=== PATIENT | male | born 1980 | race Caucasian/White ===

== ENCOUNTER 2016-10-05 12:50 | Emergency (ER) | payer SELFPAY ==
--- NOTE | 2016-10-05 13:22 | EDM.PDOC ---
ED HPI GENERAL MEDICAL PROBLEM - General Chief Complaint: Eye Problems Stated Complaint: EYE BURNING Time Seen by Provider: 10/05/16 13:17 Source of Information: Reports: Patient History Limitations: Reports: No Limitations - History of Present Illness INITIAL COMMENTS - FREE TEXT/NARRATIVE: HISTORY AND PHYSICAL: []36-year-old male presenting with pain to his right lower eyelid History of Present Illness: []Gentleman has had difficulty increasing for the last 2 days Review of Systems: As per history of present illness and below otherwise all systems reviewed and negative. Past medical history: As per history of present illness and as reviewed below otherwise noncontributory. Surgical history: As per history of present illness and as reviewed below otherwise noncontributory. Social history: No reported history of drug or alcohol abuse. Family history: As per history of present illness and as reviewed below otherwise noncontributory. Physical exam: Alert and oriented male who answers questions appropriately nontoxic in appearance. HEENT: Atraumatic, normocehpalic, pupils reactive, negative for conjunctival pallor or scleral icterus, mucous membranes moist, neck supple, nontender, trachea midline. Right lower eyelid close to the inner canthus erythematous, small white dot is starting to appear at the top of the edema. Lungs: Clear to auscultation, breath sounds equal bilaterally, chest non tender. Heart: S1S2, regular, negative for clicks, rubs, or JVD. Abdomen: Soft, nondistended, nontender. Negative for masses or hepatossplenmegaly. Negative for costovertebral tenderness. Pelvis: Stable nontender. Genitourinary: Deferred. Rectal: Deferred Extremities: Atraumatic, negative for cords or calf pain. Neurovascular unremarkable. Neuro: Awake, alert, oriented. Cranial nerves II through XII unremarkable. Cerebellum unremarkable. Motor and sensory unremarkable throughout. Exam nonfocal. Discussed with patient his diagnosis of stye. Will have hot packs to this eye to help draw the rest of the material out. Diagnostics: [] Therapeutics: [] Impression: []Stye right eye Plan: []Discharged to home Erythromycin ophthalmic ointment 4 times a day to right eye Heat packs 3 times a day at least 10 minutes each time Follow-up with your primary care provider or construction job cost estimator Definitive disposition and diagnosis as appropriate pending reevaluation and review of above. Onset: Gradual Duration: Day(s): Location: Reports: Face Right Eye Lower Lid Pain Score (Numeric/FACES): 6 - Related Data Allergies Allergy/AdvReac Type Severity Reaction Status Date / Time No Known Allergies Allergy Verified 10/05/16 12:59 Home Meds: Home Meds Erythromycin Base [Erythromycin 0.5% Ophth Oint] 1 applic OP Q4H #1 tube [Rx] Past Medical History - Past Health History Medical/Surgical History: Denies Medical/Surgical History Social & Family History - Family History Family Medical History: Noncontributory - Tobacco Use Smoking Status *Q: Current Every Day Smoker Years of Tobacco use: 20 Packs/Tins Daily: 1 Second Hand Smoke Exposure: No - Alcohol Use Days Per Week of Alcohol Use: 4 Number of Drinks Per Day: 3 Total Drinks Per Week: 12 - Recreational Drug Use Recreational Drug Use: No ED ROS GENERAL - Review of Systems Review Of Systems: ROS reveals no pertinent complaints other than HPI. ED EXAM GENERAL W FULL EYE - Physical Exam Exam: See Below (See dictation) Course - Vital Signs Last Recorded V/S: Last Vital Signs Temp 36.6 C 10/05/16 13:00 Pulse 65 10/05/16 13:00 Resp 16 10/05/16 13:00 BP 127/73 10/05/16 13:00 Pulse Ox 98 10/05/16 13:00 Departure - Departure Time of Disposition: 13:20 Disposition: Home, Self-Care 01 Condition: Good Clinical Impression: Stye external Qualifiers: Laterality: right Eyelid: lower Qualified Code(s): H00.012 - Hordeolum externum right lower eyelid - Discharge Information Prescriptions: Erythromycin Base [Erythromycin 0.5% Ophth Oint] 1 applic OP Q4H #1 tube Referrals: PCP,None [Primary Care Provider] - Additional Instructions: The following information is given to patients seen in the emergency department who are being discharged to home. This information is to outline your options for follow-up care. We provide all patients seen in our emergency department with a follow-up referral. The need for follow-up, as well as the timing and circumstances, are variable depending upon the specifics of your emergency department visit. If you don't have a primary care physician on staff, we will provide you with a referral. We always advise you to contact your personal physician following an emergency department visit to inform them of the circumstance of the visit and for follow-up with them and/or the need for any referrals to a consulting specialist. The emergency department will also refer you to a specialist when appropriate. This referral assures that you have the opportunity for followup care with a specialist. All of these measure are taken in an effort to provide you with optimal care, which includes your followup. Under all circumstances we always encourage you to contact your private physician who remains a resource for coordinating your care. When calling for followup care, please make the office aware that this follow-up is from your recent emergency room visit. If for any reason you are refused follow-up, please contact the [facility] emergency department at and asked to speak to the emergency department charge nurse. You were found to have a external stye Please continue to use hot packs to this area 3 times a day 10 minutes each time Erythromycin ointment a small strip to the inner lower eyelid every 4 hours while awake 3 days Follow-up with your primary care provider or construction job cost estimator
[2016-10-05 13:32] VITALS: BP 112/69
== END 2016-10-05 13:29 | disposition home or self-care (01) ==
LOC: MW.ED 12:50
DX: H00.012 Hordeolum externum right lower eyelid (principal); F17.210 Nicotine dependence, cigarettes, uncomplicated
CPT/HCPCS: 99282; 99283